=== PATIENT | male | born 1980 | race Caucasian/White ===

== ENCOUNTER 2016-11-15 11:05 | Emergency (ER) | payer MEDICAID | END 2016-11-15 14:15 | disposition left against medical advice (07) | LOC: UCCORT 11:05 | DX: Z53.21 Procedure and treatment not carried out due to patient leaving prior to being seen by health care provider (principal) ==

== ENCOUNTER 2019-10-08 12:50 | Emergency (ER) | payer SELFPAY ==
[2019-10-08 13:32] VITALS: BP 112/76
--- NOTE | 2019-10-08 15:27 | UC ---
Hand/Wrist HPI - HPI Summary HPI Summary: Patient is 39 year old male , who present today to the urgent care with right hand pain. Punched door around 1200 with right fist. Now has swelling and pain in hand. Denies wrist pain. Points to the fourth metacarpal phalangeal joint area with swelling and pain - History Of Current Complaint Chief Complaint: UCUpperExtremity Stated Complaint: RT HAND COMPLAINT Time Seen by Provider: 10/08/19 14:44 Hx Obtained From: Patient Pain Intensity: 4 - Allergies/Home Medications Allergies/Adverse Reactions: Allergies Allergy/AdvReac Type Severity Reaction Status Date / Time No Known Allergies Allergy Verified 10/08/19 13:32 PMH/Surg Hx/FS Hx/Imm Hx - Additional Past Medical History Additional PMH: Past Medical History : Lyles's esophagus Past Surgical History: His symptoms, tonsillectomy, appendectomy, cholecystectomy Family History : non contributory Social History : Occasional alcohol, non smoker, no drug use. Previously Healthy: Yes - Surgical History Surgical History: Yes Surgery Procedure, Year, and Place: wisdom teeth 2006. tonscillectomy 2007 [facility] care. appy 2005 [facility] [place]. [facility] - Family History Known Family History: Positive: None - Social History Alcohol Use: Occasionally Substance Use Type: None Smoking Status (MU): Never Smoked Tobacco Review of Systems All Other Systems Reviewed And Are Negative: Yes Constitutional: Positive: Negative Skin: Positive: Negative Eyes: Positive: Negative ENT: Positive: Negative Respiratory: Positive: Negative Cardiovascular: Positive: Negative Gastrointestinal: Positive: Negative Genitourinary: Positive: Negative Motor: Positive: Negative Neurovascular: Positive: Negative Musculoskeletal: Positive: Arthralgia - Right hand, Edema - Right hand fourth MCP joint area Neurological: Positive: Negative Psychological: Positive: Negative Is Patient Immunocompromised?: No Physical Exam - Summary Physical Exam Summary: Vital Signs Reviewed: Yes A+Ox3, no distress Eyes: Conjunctiva Clear ENT: Hearing grossly normal neck: supple Respiratory: Positive: No respiratory distress, No accessory muscle use Cardiovascular: skin color reflect adequate perfusion Musculoskeletal Exam: SAMUEL x 4 without difficulty Neurological: Positive: Alert, ambulatory without difficulty Psychological: Positive: Normal Response To Family Skin: Positive: no rash, no ecchymosis Right Wrist: No swelling or tenderness, full range of motion Right hand: There is swelling and tenderness to palpation at the distal fourth of the carpal area. No malrotation noted Strength: 5/5 Flexor and extensor tendon intact Neuro: Sensory intact . 2+ radial pulses bilaterally. Capillary refill <2 seconds to all digits bilaterally. Triage Information Reviewed: Yes Vital Signs: Initial Vital Signs Temp 97.4 F 10/08/19 13:29 Pulse 77 10/08/19 13:29 Resp 15 10/08/19 13:29 BP 112/76 10/08/19 13:29 Pulse Ox 99 10/08/19 13:29 Vital Signs Reviewed: Yes Diagnostics - Radiology No standard instances Radiology Interpretation Completed By: Radiologist - Xray of right hand : IMPRESSION: Fractured head of the right fourth metacarpal. Hand/Wrist Course/Dx - Course Course Of Treatment: During the visit today we obtained a Xray of right hand : IMPRESSION: Fractured head of the right fourth metacarpal. I applied of the ulnar gutter cast. Procedure note: Ulnar gutter cast splint made with Ortho-Glass was applied. Cast precautions were discussed. Neurovascular pre-and post-cast application was intact He tolerated the procedure well Advised him to follow up with orthopedics in 2-3 days - Differential Dx/Diagnosis Provider Diagnosis: Fracture of fourth metacarpal bone of right hand Discharge ED - Sign-Out/Discharge Documenting (check all that apply): Patient Departure All imaging exams completed and their final reports reviewed: Yes - Discharge Plan Condition: Stable Disposition: HOME Patient Education Materials: Hand Fracture (ED) Referrals: Manuela Gandhi NP [Primary Care Provider] - Karen Saini MD [Medical Doctor] - 2 Days Additional Instructions: Continue cast splint . Ibuprofen as needed for pain Follow up with orthopedics in 2 to 3 days. Return to Urgent care / ER if symptoms get worse. - Billing Disposition and Condition Condition: STABLE Disposition: Home
== END 2019-10-08 15:35 | disposition home or self-care (01) ==
LOC: UCCORT 12:50
DX: S62.394A Other fracture of fourth metacarpal bone, right hand, initial encounter for closed fracture (principal); W22.03XA Walked into furniture, initial encounter; Y92.9 Unspecified place or not applicable
CPT/HCPCS: 26600; 99211; G0463